=== PATIENT | female | born 2000 | race Caucasian/White ===

== ENCOUNTER 2021-12-28 15:04 | Outpatient (CLI) | payer BC, MEDICAID, SELFPAY ==
--- NOTE | 2021-12-28 15:23 | US_ITS ---
STUDY: COMPLETE PELVIC ULTRASOUND EXAMINATION OF THE FEMALE PELVIS (NON-OBSTETRICAL) OF 1548 HOURS ON 12/28/2021 REASON FOR EXAM: -year-old female with irregular menses and the prolonged menses, and bleeding between cycles. LMP: 12/16/2021. TECHNIQUE: A transvaginal non-obstetrical pelvic ultrasound examination was performed per protocol. TECHNICAL QUALITY: Adequate. COMPARISON: None. FINDINGS: The uterus is anteverted and is of normal size and configuration measuring 7.9 mm in length by 5.0 cm in AP diameter by 3.3 cm in transverse diameter. There is a 3 mm thick slightly hyperechoic endometrium. There is no evidence of intrauterine or ectopic . There is no evidence of a uterine cystic or solid mass lesion. There is no demonstration of uterine fibroids. The cervix has normal appearance. An intrauterine device is not in place. The right ovary measures 3.2 cm x 3.0 cm x 2.8 cm and is without evidence of cystic or solid mass lesions or torsion. The left ovary measures 3.7 cm x 3.2 cm x 2.4 cm. There is a solid heterogeneous hyperemic mass in the medial aspect of the left ovary measuring 1.7 cm x 1.87 x 1.6 cm. Is no evidence of left ovarian torsion. There is no evidence of adnexal masses or free fluid in the cul-de-sac. The bladder has normal appearance. US/Pelvic (Non ) IMPRESSION: 1. Presence of a solid heterogeneous hyperemic mass in the medial aspect of the left ovary, measuring 1.7 cm x 1.7 x 1.6 cm. 2. No evidence of other ovarian cystic or solid mass lesions or torsion. 3. Normal-appearing anteverted uterus with a 3 mm thick hyperechoic endometrium and no evidence of cystic or solid mass lesions. 4. No intrauterine or ectopic . 5. No intrauterine device. 6. No adnexal masses or free fluid in the cul-de-sac Electronically Signed: Carmelo Bueno MD at 20:58 EDT ,
--- NOTE | 2021-12-28 15:24 | US_ITS ---
STUDY: COMPLETE PELVIC ULTRASOUND EXAMINATION OF THE FEMALE PELVIS (NON-OBSTETRICAL) OF 1548 HOURS ON 12/28/2021 REASON FOR EXAM: -year-old female with irregular menses and the prolonged menses, and bleeding between cycles. LMP: 12/16/2021. TECHNIQUE: A transvaginal non-obstetrical pelvic ultrasound examination was performed per protocol. TECHNICAL QUALITY: Adequate. COMPARISON: None. FINDINGS: The uterus is anteverted and is of normal size and configuration measuring 7.9 mm in length by 5.0 cm in AP diameter by 3.3 cm in transverse diameter. There is a 3 mm thick slightly hyperechoic endometrium. There is no evidence of intrauterine or ectopic . There is no evidence of a uterine cystic or solid mass lesion. There is no demonstration of uterine fibroids. The cervix has normal appearance. An intrauterine device is not in place. The right ovary measures 3.2 cm x 3.0 cm x 2.8 cm and is without evidence of cystic or solid mass lesions or torsion. The left ovary measures 3.7 cm x 3.2 cm x 2.4 cm. There is a solid heterogeneous hyperemic mass in the medial aspect of the left ovary measuring 1.7 cm x 1.87 x 1.6 cm. Is no evidence of left ovarian torsion. There is no evidence of adnexal masses or free fluid in the cul-de-sac. The bladder has normal appearance. US/Transvaginal Non- IMPRESSION: 1. Presence of a solid heterogeneous hyperemic mass in the medial aspect of the left ovary, measuring 1.7 cm x 1.7 x 1.6 cm. 2. No evidence of other ovarian cystic or solid mass lesions or torsion. 3. Normal-appearing anteverted uterus with a 3 mm thick hyperechoic endometrium and no evidence of cystic or solid mass lesions. 4. No intrauterine or ectopic . 5. No intrauterine device. 6. No adnexal masses or free fluid in the cul-de-sac Electronically Signed: Carmelo Bueno MD at 20:58 EDT ,
== END 2021-12-28 23:59 | disposition home or self-care (01) ==
DX: N93.9 Abnormal uterine and vaginal bleeding, unspecified (principal)
CPT/HCPCS: 76830; 76856

== ENCOUNTER → 2022-02-10 | Outpatient (CLI) | payer BC, MEDICAID, SELFPAY ==
[2022-02-14 13:29] LABS: Gonococcus By Nucleic Acid AMP Negative (Negative)
[2022-02-14 13:30] LABS: Chlamydia By Nucleic Acid AMP Positive (Negative)
== END | disposition home or self-care (01) ==
PROVIDERS: Visit Provider Obstetrics & Gynecology
DX: Z11.3 Encounter for screening for infections with a predominantly sexual mode of transmission (principal)
CPT/HCPCS: 87491; 87591

== ENCOUNTER → 2022-03-23 | Outpatient (CLI) | payer BC, MEDICAID, SELFPAY ==
[2022-03-26 00:06] LABS: Chlamydia By Nucleic Acid AMP Negative (Negative)
[2022-03-27 16:56] LABS: Gonococcus By Nucleic Acid AMP Negative (Negative)
== END | disposition home or self-care (01) ==
LOC: LABSPEC 15:44
PROVIDERS: Visit Provider Obstetrics & Gynecology
DX: A74.9 Chlamydial infection, unspecified (principal)
CPT/HCPCS: 87491; 87591

== ENCOUNTER → 2023-09-27 | Outpatient (CLI) | payer MEDICAID, SELFPAY ==
[2023-09-27 14:47] LABS: Absolute Lymphocyte Count 2.68 X10^3/uL (0.83-4.51); Absolute Neutrophil Count 5.7 X10^3/uL (2.0-7.7); Basophil# 0.06 X10^3/uL; Basophil% 0.7 % (0-1); Eosinophil# 0.06 X10^3/uL; Eosinophils% 0.7 % (0-5); Hematocrit 39.2 % (37-47); Lymphocyte # 2.68 X10^3/ul (0.83-4.51); Lymphocyte % 29.8 % (19-41); Mean Corp Hgb Conc 33.2 g/dL (32-36); Mean Corpuscular Hgb 29.6 pg (27.0-32.0); Mean Corpuscular Volume 89.3 fL (81-99); Mean Platelet Vol. 9.6 fl (6.2-12.0); Monocyte# 0.43 X10^3/uL; Monocyte% 4.8 % (0-10); NRBC Flagged by Analyzer 0 % (0-5); Neutrophil # 5.74 X10^3/uL (2.7-7.7); Neutrophil % 63.7 % (47-70); Platelet Count 340 K/mm3 (150-450); RBC Distribution Width CV 11.9 % (11.6-14.6); RBC Distribution Width SD 39.4 fl (35.1-43.9); Red Blood Count 4.39 M/mm3 (4.2-5.4)
[2023-09-27 15:22] LABS: ALB/GLOB Ratio 0.9 RATIO (0.9-2.4); AST(SGOT) 12 U/L (15-37); Alanine Aminotransfer ALT/SGPT 16 U/L (13-56); Albumin, Serum 3.7 g/dL (3.2-5.0); Alkaline Phosphatase 58 U/L (45-117); Anion Gap 10 (5-15); BUN 16 mg/dL (7-18); BUN/Creat Ratio 26.4 RATIO (10-20); Calcium,Total 8.7 mg/dL (8.5-10.1); Chloride 105 mmol/L (98-107); EST Glomerular Filtration Rate 128 mL/min (>60); Est Glom Filt Rate - Afr Amer 155 mL/min (>60); Globulin 4.2 g/dL (2.2-4.2); Glucose 100 mg/dL (74-106); Potassium 4.1 mmol/L (3.5-5.1); Protein, Total 7.9 g/dL (6.4-8.2); Sodium Level 142 mmol/L (136-145)
[2023-09-27 17:06] LABS: HIV - WCH Non-Reactive (Nonreactive); Hepatitis B Surface Antibody Non-Reactive; Hepatitis B Surface Antigen Non-Reactive (Nonreactive)
[2023-09-28 02:35] LABS: Hepatitis C Antibody Non-Reactive (Nonreactive)
== END | disposition home or self-care (01) ==
LOC: LAB 14:11
PROVIDERS: Referring Provider Family Medicine; Visit Provider Family Medicine
DX: F11.20 Opioid dependence, uncomplicated (principal)
CPT/HCPCS: 86803; 86804; 36415; 80053; 85025; 86703; 86706; 87340